=== PATIENT | female | born 1940 | race Caucasian/White ===

== ENCOUNTER 2019-03-22 12:54 | Outpatient (CLI) | payer MEDICARE ==
--- NOTE | 2019-03-22 16:45 | Diagnostic Imaging Report ---
PATIENT MR#: [id number] PATIENT PATIENT NAME: JEAN MARIE TORRES DATE OF : 1940 REFERRING PHYSICIAN: Anali Price EXAM DATE: 03/22/2019 ACCESSION NUMBER: [id number] EXAM DESCRIPTION: L SPINE 4 VIEWS CLINICAL HISTORY: CHRONIC LOW BACK PAIN COMPARISON: No relevant comparison is available at the time of interpretation. L-SPINE XRAY, 7 views including obliques and flexion - extension: Vertebral bodies: Anterior wedge compression deformities of L1 and L2. Disc spaces: Moderate degenerative disc disease at T12-L1, L1-2, L2-3, L3-4 and L4-5, asymmetric due to scoliosis. Severe degenerative disc disease at L5-S1. Alignment: There is a moderate S-shaped lumbar scoliosis which measures approximately 30? dextroconv ex at L1. Normal lumbar lordosis. Grade 1 retrolisthesis of L2 over L3, and L3 over L4 which correct with flexion. Facets: The facets are poorly visualized on oblique views due to large body habitus and therefore spo ndylolysis cannot be excluded. IMPRESSION: 1. Anterior wedge pressure deformities of L1 and L2. 2. Moderate S-shaped lumbar scoliosis. 3. Grade 1 retrolisthesis of L2 over L3, and L3 over L4, which correct with flexion. 4. Moderate degenerative disc disease from T12-L1 through L4-5, asymmetric due to scoliosis. Severe d egenerative disc disease at L5-S1. Read by: Dr. Urban Gaines Transcribed by: Urban Gaines Transcribed Date: 03/22/2019 4:44:28 PM Electronically signed by: Dr. Urban Gaines Date signed: 03/22/2019 4:45:02 PM
--- NOTE | 2019-03-22 16:51 | Diagnostic Imaging Report ---
PATIENT MR#: [id number] PATIENT PATIENT NAME: JEAN MARIE TORRES DATE OF : 1940 REFERRING PHYSICIAN: Anali Price EXAM DATE: 03/22/2019 ACCESSION NUMBER: [id number] EXAM DESCRIPTION: PELVIS AP 1 OR 2 VIEWS HISTORY: CHRONIC HIP/PELVIS PAIN COMPARISON: No pertinent prior studies are available at this time. PELVIS XRAY, FRONTAL VIEW: Pelvic bone: Intact appearance. There is significant pelvic tilt, with the left iliac crest 2.7 cm lo wer than right. Pelvic soft tissue: No calcifications along the expected course of the ureters. Hips: No fracture or dislocation. Moderate bilateral hip arthrosis in the form of cartilage narrowin g and acetabular osteophytes. IMPRESSION: 1. Significant pelvic tilt, which may contribute to scoliosis. 2. Moderate bilateral hip arthrosis. Read by: Dr. Urban Gaines Transcribed by: Urban Gaines Transcribed Date: 03/22/2019 4:50:54 PM Electronically signed by: Dr. Urban Gaines Date signed: 03/22/2019 4:50:54 PM
--- NOTE | 2019-03-31 16:19 | CONSULTATION REPORT ---
DATE OF VISIT: 03/22/2019 CHIEF COMPLAINT: Low back pain. HISTORY OF PRESENT ILLNESS: Mrs. Nayla Izaguirre is a 78-year-old female patient here for initial evaluation of low back pain. She tells me that she has always had some sort of low back pain. It has been worse in the last four to five years. She describes her pain as constant, aching to burning. She describes radiation that is very deep in bilateral lower extremities down to the toes. She does experience intermittent numbness and tingling. She has right lower extremity weakness and pain especially with climbing stairs and this is also associated with some right hip pain. She denies any urinary incontinence, bowel incontinence or saddle anesthesia. Her pain is worse with walking, standing, climbing stairs and sitting too long. Her pain is improved with rest and lying down as well as raqt-zbh-[id number] ibuprofen. The patient has been doing physical therapy since 02/02/2019 or so to present. It seems to help in her strength and endurance, however, not so much in her pain. She is going to continue physical therapy two times a week until approximately mid-April. She also does the home exercise program that they have taught her at home each day. She also had recent imaging that was ordered by her primary care physician which we reviewed. Currently the patient takes prescribed meloxicam or [id number] ibuprofen with improvement in her pain symptoms. PAST MEDICAL HISTORY: Includes seasonal allergies, back pain, a history of DVT, heartburn/reflux, hiatal hernia, urge incontinence, varicose veins and restless leg syndrome. PAST SURGICAL HISTORY: Includes a tonsillectomy in 1950, appendectomy in 1959, cholecystectomy in 1986 and hysterectomy in 1970. SOCIAL HISTORY: The patient is . Occupation is retired teacher. The patient has had four pregnancies and four live births. Denies tobacco use, denies alcohol use and denies recreational drug use. MEDICATION ALLERGIES: None. CURRENT MEDICATIONS: Meloxicam, Singulair, ranitidine, Zyrtec, oxybutynin, vitamin D, calcium and ropinirole. IMAGING REVIEWED: X-ray of cervical spine performed on 02/16/2019. Impression: Advanced cervical spondylosis with disc space narrowing involving the C4-C5, C5- C6 and C6-C7 levels with questionable mild foraminal narrowing on the left at the C5-C6 and C6-C7 levels. X-ray of the thoracic spine performed on 02/16/2019. Conclusion: Mild anterior compression deformities involving the T10 and T12 vertebrae. Marked right convexity, thoracolumbar scoliosis with marked osteopenia. It also reveals moderate degenerative disc changes in the mid thoracic spine. X-ray of the lumbosacral spine. Impression: Degenerative disc changes at T12-L1, L1-L2 and L5-S1 without acute appearing fractures or subluxation. Prominent anterior osteophytes at the T12-L1 and L1-L2 levels and moderate disc space narrowing at the L5-S1 level. REVIEW OF SYSTEMS: A complete 14-point review of systems was completed and positive for glasses, heartburn and back pain. PHYSICAL EXAMINATION: General: This is a well-developed, well-nourished elderly female patient presenting in no acute distress. Vital Signs: The patient is 5 feet 11.5 inches tall and weighs 206 pounds. She is rating the pain 3/10 today. Temperature is 97.6, pulse 57, respiratory rate 18, blood pressure 185/93 with an SaO2 of 94% on room air. Psych: She is alert and oriented x 3. She is calm, pleasant and cooperative. HEENT: She is normocephalic and atraumatic. Pupils are equal and round bilaterally without miosis. Sclerae are clear. Trachea is midline. There is no lymphadenopathy and no thyromegaly. Cardiovascular: Normal S1, S2 with a regular rate and rhythm. No gallops, murmurs or rubs. Pulmonary: She has nonlabored respirations at rest. Lungs are clear to auscultation throughout bilaterally. GI: Abdomen is soft, nondistended and nontender with bowel sounds present in all four quadrants. Musculoskeletal: On visualization of the spine, the patient has marked right convexity of the thoracolumbar spine. The patient is able to achieve full lumbar flexion. She is able to achieve full extension with severe low back pain. She is tender to palpation over the spinous processes at T10, T11 and T12. She is also tender to palpation over the bilateral L4-L5 and L5-S1 facet joints and in her lumbar paraspinals. She has minimal tenderness over bilateral SI joints. She has mild tenderness over her right greater trochanteric bursa. Right Augustine's is negative, left Augustine's is positive with axial low back pain as well as right posterior leg pain. On lower extremity strength testing, she is graded 5/5 bilaterally in hip flexion, knee extension, knee flexion, dorsiflexion and plantar flexion. She has a negative seated straight leg raise bilaterally. Deep tendon patellar reflexes are 2+ bilaterally. Neuro: Cranial nerves II through XII are grossly intact. Neurosensory: Sensation until I touch is intact bilateral lower extremities in all dermatomes. IMPRESSION: 1. Lumbago. 2. Lumbar radiculitis versus radiculopathy. 3. Scoliosis. PLAN: 1. Today I am obtaining an AP pelvis x-ray. 2. I have ordered an L-spine series to include flexion and extension to ensure there is no listhesis. 3. I have ordered an MRI without contrast for which the patient wants it performed at [facility]. I have asked that they provide the patient a disK and advise the patient to bring the disk. Just as soon as she has that done, she can follow up and we will determine a plan of care that is appropriate for her. I did ask the technologist that does the MRI to please include T10 through sacrum with [facility] imaging so that we can evaluate her compression fractures more thoroughly. 4. The patient is to continue the physical therapy and home exercise program that she has already been doing. 5. She is to follow up after her MRI. She can do this just as soon as she has it done. The patient did verbalize understanding and agrees to the current treatment plan. SOFI Aldanaurse Practitioner /[employer] [id number].[email or web address] jrd cc: Ana Andre MD [facility] [place]
== END 2019-03-22 13:54 ==
LOC: OUT 12:54
PROVIDERS: ATTEND Nurse Practitioner Adult Health
DX: M41.86 Other forms of scoliosis, lumbar region (principal)
CPT/HCPCS: 72110; 72170

== ENCOUNTER 2019-06-07 12:15 | Outpatient (CLI) | payer MEDICARE ==
--- NOTE | 2019-06-10 11:01 | OP Clinic Progress Note ---
DATE OF VISIT: 06/07/2019 CHIEF COMPLAINT: Low back pain. HISTORY OF PRESENT ILLNESS: Mrs. Nayla Izaguirre is a 78-year-old female patient here for followup low back pain. The patient tells me that she has always had some sort of low back pain. It has been worse in the last four to five years. She describes her pain as constant aching to burning. She describes radiation that is very deep in bilateral lower extremities down to the toes. She does experience intermittent numbness and tingling. She has right lower extremity weakness and pain especially with climbing stairs and this is also associated with some right hip pain. She denies any urinary incontinence, bowel incontinence or saddle anesthesia. When I ask the patient if her back or her lower extremity pain is worse, she tells me that her back is definitely worse than her leg pain. Her pain is worse with walking, standing, climbing stairs and sitting too long. Her pain is improved with rest and lying down as well as [id number]-[id number]-[id number] ibuprofen. The patient continues to do a home exercise program, however, does not notice much improvement in her pain. Currently, the patient takes prescribed meloxicam or mazq-pij-dwrfzfh ibuprofen with improvement in her pain symptoms. She denies any medication side effects or concerns. PFSH: Reviewed from 03/22/2019 and is unchanged. REVIEW OF SYSTEMS: Reviewed from 03/22/2019 and unchanged. IMAGING REVIEWED: AP Pelvis 03/22/2019 performed at [facility]. Impression: 1. Significant pelvic tilt associated with scoliosis. 2. Moderate bilateral hip arthrosis. Lumbar spine series 03/22/2019 at [facility]. Impression: 1. Anterior wedge deformity of the L1 and L2. 2. Moderate S-shaped lumbar scoliosis. 3. Grade 1 retrolisthesis of L2 over L3 and L3 over L4, which correct in flexion. 4. Moderate degenerative disc disease from T12 through L5, asymmetric due to scoliosis. Severe degenerative disc disease at L5-S1. MRI lumbar spine without contrast 05/19/2019 performed at [facility]. Findings: L2-3 mild degenerative disc space narrowing with posterior disc bulging with slight retrolisthesis of L2 on L3 likely due to degenerative facet arthrosis. No evidence of disc protrusion or central or foraminal stenosis at this level. L3-4 level mild posterior disc bulging with slight retrolisthesis of L3 on L4. No focal area of disc protrusion or central or foraminal stenosis identified. L4-5 level posterior disc bulging with moderate degenerative facet arthropathy greater on the right. No evidence of marrow replacing process. L5-S1 level moderate disc space narrowing without evidence of central or foraminal stenosis or disc protrusion. Conclusion: Multilevel degenerative disc changes as described without evidence of acute compression deformity or area of disc protrusion or central or foraminal stenosis. PHYSICAL EXAMINATION: General: This is a well-developed, well-nourished female patient who is in no acute distress. Vital Signs: Height is 6 feet. Weight is 198 pounds. Temperature is 98. Pulse 51. Respiratory rate is 18, blood pressure 147/75 with an SAO2 of 97% on room air. She is rating her pain 5/10. Psych: She is alert and oriented x3. She is calm, pleasant and cooperative. Very conversant. HEENT: She is normocephalic and atraumatic. Pupils are equal and round bilaterally without miosis. Sclerae clear. Musculoskeletal: On visualization of the spine, the patient has marked right convexity of thoracolumbar spine. The patient has tenderness to palpation over the bilateral L3-4, L4-5, L5-S1 facet joints and also over the lumbar paraspinals. She also has tenderness to palpation over bilateral SI joints. Neurologic: Cranial nerves II through XII are grossly intact. Sensation to light touch is intact in the bilateral lower extremities. The patient walks with an antalgic gait hunched forward. ASSESSMENT: 1. Chronic low back pain. 2. Lumbar DDD. 3. Lumbar facet arthrosis. 4. Bilateral sacroilitis. 5. Bilateral hip arthrosis. PLAN: 1. As discussed with the patient, I have recommended facet joint injections at the L3-4, L4-5 and L5-S1 levels. If she completes two successful sets of these with improvement in her pain symptoms, we would then proceed to RFA. The patient wants to discuss this with her primary care physician and will let us know if she wants to proceed with injections. 2. The patient is to continue her home exercise program. 3. The patient is to follow up as needed. The patient verbalizes understanding and agrees with the current treatment plan. Anali Price NP Nurse Practitioner /[employer] [id number].[email or web address] jrd cc: Ana Andre MD [facility] SYLVIA Potter
== END 2019-06-07 13:15 ==
LOC: OUT 12:15
PROVIDERS: ATTEND Nurse Practitioner Adult Health
DX: M51.36 Other intervertebral disc degeneration, lumbar region (principal); M47.896 Other spondylosis, lumbar region; M16.0 Bilateral primary osteoarthritis of hip; M46.1 Sacroiliitis, not elsewhere classified
CPT/HCPCS: 99213